=== PATIENT | male | born 1950 | race Hispanic/Latino ===

== ENCOUNTER → 2017-11-09 | Outpatient (CLI) | payer OTHER | LOC: OIH 09:20 | PROVIDERS: ATTEND Family Medicine | DX: I10 Essential (primary) hypertension (principal) | CPT/HCPCS: 71046 ==

== ENCOUNTER → 2017-12-03 | Outpatient (CLI) | payer OTHER | END | disposition home or self-care (01) | LOC: RAH 10:00 | PROVIDERS: ATTEND Family Medicine | DX: E03.9 Hypothyroidism, unspecified (principal); Z80.8 Family history of malignant neoplasm of other organs or systems | CPT/HCPCS: 76536 ==

== ENCOUNTER 2018-12-16 18:41 | Emergency (ER) | payer OTHER ==
[2018-12-16] MEDS ORDERED: TETANUS/DIPHTHERIA TOXOID [ADULT] 0.5 ML VIAL IM ONE (19:37)
[2018-12-16 19:45] LABS: BASOPHILS % (AUTO) 0.6 % (0.0-5.0); EOSINOPHILS % (AUTO) 2.1 % (0.0-8.0); HEMATOCRIT 43.2 % (42-54); LYMPHOCYTES % (AUTO) 29.5 % (21.0-51.0); MEAN CORPUSCULAR HGB CONC 33.8 g/dL (32.0-36.0); MEAN CORPUSCULAR VOLUME 94.7 fL (79-99); MONOCYTES % (AUTO) 6.1 % (3.0-13.0); NEUTROPHILS % (AUTO) 61.7 % (40.0-77.0); NUCLEATED RED BLOOD CELLS 0.1 % (0.0-0.19); PLATELET COUNT (AUTO) 203 K/uL (130-400); RED BLOOD CELL COUNT(AUTO) 4.56 MIL/uL (4.50-6.20); RED CELL DISTRIBUTION WIDTH 13.8 % (11.0-15.5); WHITE BLOOD COUNT (AUTO) 11.8 K/uL (4.8-10.8)
[2018-12-16 19:46] LABS: APPEARANCE,URINE Clear (CLEAR); BILIRUBIN,URINE Negative (NEGATIVE); COLOR,URINE Yellow (YELLOW); GLUCOSE, URINE (UA) Negative (NEGATIVE); KETONES,URINE Negative (NEGATIVE); LEUKOCYTE ESTERASE ,URINE Negative (NEGATIVE); NITRATE,URINE Negative (NEGATIVE); OCCULT BLOOD,URINE Negative (NEGATIVE); PH,URINE 5.5 (5.0-8.0); PROTEIN,URINE Negative (NEGATIVE); UROBILINOGEN,URINE 0.2 mg/dL (0.2-1.0)
[2018-12-16 19:54] LABS: AMPHET/METH SCREEN,URINE NEGATIVE (NEGATIVE); BARBITURATE SCREEN, URINE NEGATIVE (NEGATIVE); BENZODIAZEPINES SCREEN,URINE NEGATIVE (NEGATIVE); CANNABINOID SCREEN,URINE NEGATIVE (NEGATIVE); COCAINE SCREEN,URINE NEGATIVE (NEGATIVE); OPIATE SCREEN,URINE NEGATIVE (NEGATIVE); PHENCYCLIDINE SCREEN,URINE NEGATIVE (NEGATIVE)
[2018-12-16 19:57] LABS: POTASSIUM 3.9 mmol/L (3.5-5.1)
[2018-12-16 19:58] LABS: INR 0.99 (0.85-1.15); PROTHROMBIN TIME 10.4 SEC (9.6-11.6)
[2018-12-16 20:02] LABS: ALBUMIN 4.2 g/dL (3.5-5.0); BILIRUBIN,TOTAL 0.5 mg/dL (0.2-1.0); TOTAL PROTEIN, SERUM 8.2 g/dL (6.0-8.3)
== END 2018-12-16 20:43 | disposition home or self-care (01) ==
LOC: EDH 18:41
DX: S01.81XA Laceration without foreign body of other part of head, initial encounter (principal); S01.112A Laceration without foreign body of left eyelid and periocular area, initial encounter; E86.9 Volume depletion, unspecified; I10 Essential (primary) hypertension; E78.5 Hyperlipidemia, unspecified; E07.9 Disorder of thyroid, unspecified; Z72.0 Tobacco use; W18.39XA Other fall on same level, initial encounter; Y93.01 Activity, walking, marching and hiking; Y92.89 Other specified places as the place of occurrence of the external cause; Y99.8 Other external cause status
CPT/HCPCS: 12053; 36415; 70450; 80053; 80305; 81003; 82550; 83605; 84484; 85025; 85610; 85730; 90471; 90714; 93005; 96360; 99285; G0480

== ENCOUNTER → 2019-03-27 | Outpatient (CLI) | payer OTHER | END | disposition home or self-care (01) | LOC: RAH 14:49 | PROVIDERS: ATTEND Family Medicine | DX: M47.816 Spondylosis without myelopathy or radiculopathy, lumbar region (principal) | CPT/HCPCS: 72131 ==

== ENCOUNTER → 2019-12-04 | Outpatient (CLI) | payer OTHER | END | disposition home or self-care (01) | LOC: OIH 09:52 | PROVIDERS: ATTEND Family Medicine | DX: R10.11 Right upper quadrant pain (principal) | CPT/HCPCS: 71046; 71110 ==

== ENCOUNTER → 2019-12-06 | Outpatient (CLI) | payer OTHER ==
[~2019-12-06] MED LIST: AMAN100T PO; DEXA1TAB PO; DEXT1CAP3 PO; LEVO88TA4 PO; LISI40TA4 PO; METO-409 PO; ROSU10TA28 PO
--- NOTE | 2019-12-06 11:00 | NUR ---
MBSS COMPLETED. NO ASPIRATION. RECOMMEND REGULAR SOLIDS, THIN LIQUIDS. COMPENSATORY STRATEGIES RECOMMENDED: ALTERNATE BITES/SIPS, EFFORTFUL SWALLOWS, DOUBLE SWALLOWS. 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 GRINDER WATCH PARTS COORDINATED CARE AND WITH DAUGHTER, RESULTS AND RECOMMENDATIONS PROVIDED VERBALLY AND VIA WRITTEN MODALITY. GRINDER WATCH PARTS EDUCATED Pt AND FAMILY MEMBER ON RISKS AND CONSEQUENCES OF ASPIRATION. ALL QUESTIONS ANSWERED AT THIS TIME. Addendum: 12/06/[address]AN GOMEZ Amended: Links added.
== END | disposition home or self-care (01) ==
LOC: RAH 10:20
PROVIDERS: ATTEND Family Medicine
DX: G23.1 Progressive supranuclear ophthalmoplegia [Steele-Richardson-Olszewski] (principal); R13.19 Other dysphagia
CPT/HCPCS: 74230; 92611

== ENCOUNTER 2020-02-12 06:51 | Inpatient (IN) | payer OTHER ==
[~2020-02-12] VITALS: Ht 157.5 cm; Wt 78.7 kg
[2020-02-12] MEDS ORDERED: DEXTROSE 50%-WATER 50 ML DISP.SYRIN IV ONE ×2 (10:35→18:28)
[2020-02-12] MEDS ORDERED: CALCIUM GLUCONATE 1 GM/10 ML VIAL IV ONE (10:35)
[2020-02-12] MEDS ORDERED: INSULIN HUMULIN R 100 UNIT/ML 3ML ONE (10:36)
[2020-02-12] MEDS ORDERED: SODIUM CHLORIDE 0.9% 100 ML IV ONE (10:39)
[2020-02-12] MEDS ORDERED: SODIUM CHLORIDE 0.9% 1000ML 1,000 ML IV SCH (13:08)
[2020-02-12] MEDS ORDERED: DiphenhydrAMINE HCL 50 MG/ML VIAL IV PRN (13:15)
[2020-02-12] MEDS ORDERED: LACTULOSE 20 GM/30 ML UDCUP PO PRN (13:15)
[2020-02-12] MEDS ORDERED: ONDANSETRON HCL 4 MG/2 ML VIAL IV PRN (13:15)
[2020-02-12] MEDS ORDERED: DEXTROSE 5 % AND 0.9 % NACL 1,000 ML IV SCH (13:30)
[2020-02-12] MEDS ORDERED: HEPARIN SODIUM 5000UNIT/ML 1ML VIAL SQ SCH (14:00)
[2020-02-12] MEDS ORDERED: SODIUM POLYSTYRENE SULFONATE 15 GM/60 ML ML PO SCH (14:30)
[2020-02-12] MEDS ORDERED: HEPARIN SODIUM 5000UNIT/ML 1ML VIAL ONE (15:40)
[2020-02-12] MEDS ORDERED: FAMOTIDINE/PF 20 MG/2 ML VIAL IV ONE (15:41)
[2020-02-12] MEDS ORDERED: DEXTROSE 5 % AND 0.9 % NACL 1,000 ML IV ONE (15:48)
[2020-02-12] MEDS ORDERED: DEXTROSE 10%-WATER 1,000 ML IV ONE (18:39)
[2020-02-12] MEDS ORDERED: DEXTROSE 10%-WATER 1,000 ML IV SCH (18:45)
[2020-02-12] MEDS ORDERED: DEXTROSE 50%-WATER 25 GM/50 ML VIAL IV SCH (19:45)
[2020-02-12] MEDS: ZOSYN 3.375GM+NS 50ML 50 ML IV SCH (23:00)
[2020-02-12] MEDS ORDERED: ZOSYN 3.375GM+NS 50ML 50 ML IV ONE (23:09)
--- NOTE | 2020-02-13 07:53 | NUR ---
patient still in ER department, awaiting for patient to be transferred to medical floor in order to be able to initiate skilled Physical Therapy evaluation as ordered by Verona Cook,AGACNPBC Addendum: 02/13/20 at 0755 by ROXANNA MENDEZ, PT PT Amended: Links added.
[2020-02-13] MEDS: FAMOTIDINE/PF 20 MG/2 ML VIAL IV SCH (09:00)
--- NOTE | 2020-02-13 09:30 | NUR ---
INITIAL ASSESSMENT- SPOKE WITH DAUGHTER DONNIE VITAL, POA FOR PATIENT AND SPOUSE, LIVES WITH SPOUSE KASSY , BOTH REQUIRE POA FOR DECISION MAKING, PROVIDER SERVICES PENDING, PT HAS ROLLING WALKER, SHOWER CHAIR , LATLEY BED BATH BECAUSE SO MUCH WEAKER, PENIDNG SWALLOW STUDY AND POSSIBLE PEG? PER DAUGHTER PATIENT HAS DX OF PROGRESSIVE SUPRANUCLEAR PALSY, SEES DR. SCHULTE IN [place]; DISCUSSED HOME HEALTH /PT/ST AT HOME IF NEEDED, WILL DECLINED PLACEMENT
[2020-02-13] MEDS ORDERED: FAMOTIDINE/PF 20 MG/2 ML VIAL IV ONE (10:15)
[2020-02-13] MEDS ORDERED: DEXTROSE 10%-WATER 1,000 ML IV ONE (13:33)
[2020-02-13] MEDS ORDERED: ZOSYN 3.375GM+NS 50ML 50 ML IV ONE (13:51)
[2020-02-13] MEDS ORDERED: SODIUM CHLORIDE 0.9% 1000ML 1,000 ML IV ONE (13:52)
[2020-02-13] MEDS ORDERED: LACTULOSE 20 GM/30 ML UDCUP ONE (14:14)
[2020-02-14] MEDS ORDERED: ZOSYN 3.375GM+NS 50ML 50 ML IV ONE (01:31)
--- NOTE | 2020-02-14 07:30 | NUR ---
patient still in ER,awaiting for patient to be transferred to medical floor in order to be able to initiate skilled Physical Therapy Evaluation. Addendum: 02/14/20 at 0732 by ROXANNA MENDEZ, PT PT Amended: Links added.
[2020-02-14] MEDS: FAMOTIDINE/PF 20 MG/2 ML VIAL IV SCH (09:00)
[2020-02-14] MEDS ORDERED: SODIUM CHLORIDE 0.9% 1000ML 1,000 ML IV SCH (14:15)
--- NOTE | 2020-02-14 20:22 | NUR ---
transfer from ed spoke with jada ramos on [facility] for report. Nurse reports pt is stable, vs 143/74, hr 72, rr 24, temp 98.4, O2 99% on 3 L nc. nurse reported pt has a pérez in place. D5 ns running at 125/h. peniding dr. wood to see pt. will review chart and assess pt once on floor.
[2020-02-14 20:47] VITALS: PULSE 81; RESP 18
[2020-02-14 20:54] VITALS: BP 143/74; PULSE 73; RESP 20; TEMP 97.7
[2020-02-14] MEDS: ZOSYN 3.375GM+NS 50ML 50 ML IV SCH (23:00)
[2020-02-15] VITALS (8 sets, daily range): BP systolic 140–154; BP diastolic 60–77; PULSE 64–83; RESP 18–21; TEMP 97.4–97.9
[2020-02-15] MEDS ORDERED: DEXTROSE 50%-WATER 50 ML DISP.SYRIN IV ONE (00:37)
[2020-02-15] MEDS ORDERED: DEXTROSE 50%-WATER 50 ML DISP.SYRIN IV PRN (02:00)
[2020-02-15] MEDS ORDERED: GLUCAGON 1MG KIT 1 MG ML IM PRN (02:00)
--- NOTE | 2020-02-15 09:00 | NUR ---
I SPOKE TO DERRELL KOHLER VEHICLE BODY SANDER FOR BENCHMARK AND SHE GAVE ME ORDER TO TRANSFER TO MED SURG FLOOR WITH TELE; I HAVE SPOKEN TO IT SUPPORT ENGINEER ASKING FOR BED.
--- NOTE | 2020-02-15 09:05 | NUR ---
I ASKED PLASTIC SURGERY MANAGER DERRELL IF PT SHOULD BE SWABBED FOR COVID AND SHE STATED NO
[2020-02-15] MEDS: FAMOTIDINE/PF 20 MG/2 ML VIAL IV SCH (09:20)
--- NOTE | 2020-02-15 09:36 | NUR ---
IN REGARDS TO CONSULTS I CALLED DR FERMIN'S OFFICE 2X AND IT WENT TO VOICE MAIL BOTH TIMES; I LEFT MESSAGE IN REGARDS TO CONSULT; I SPOKE TO TAVON AT DR VALENCIA'S OFFICE AND INFORMED OF CONSULT; I ATTEMPTED TO CALL REPORT TO 3RD FLOOR TO TRANSFER THE PATIENT BUT NO ONE WAS AVAILABLE TO TAKE THE REPORT
--- NOTE | 2020-02-15 10:03 | NUR ---
RE: LIVER BIOPSY BY IR DR Sofy LEDESMA NOTIFIED OF PROCEDURE AND REVIEWED IMAGES. AGREES WITH RECOMMENDATIONS ON CT REPORT. PATIENT NEEDS LIVER MRI WITH CONTRAST TO CONFIRM LIVER LESION. RECOMMENDATIONS REPORTED TO Shahbaz MART RN
--- NOTE | 2020-02-15 10:15 | NUR ---
DR ROBBINS STATES PT CAN NOT HAVE MRI WITH CONTRAST DUE TO HIS KIDNEY FAILURE; HE IS GOING TO CALL DR LEDESMA AND DISCUSS CASE. I HAVE CALLED RL AND UPDATED HER ON THIS.
--- NOTE | 2020-02-15 10:30 | NUR ---
REPORT RECEIVED FROM SHIREEN SU. SHIREEN LOREDO TRANSFERRED PATIENT TO ROOM 301. PENDING CALL BACK FROM DR. GA. PATIENT SLUGGISH TO SPEAK OR OPEN HIS EYES.
[2020-02-15] MEDS: ZOSYN 3.375GM+NS 50ML 50 ML IV SCH ×2 (13:03→23:45)
--- NOTE | 2020-02-15 13:35 | NUR ---
RE: LIVER BIOPSY BY IR DR Sofy LEDESMA MADE AWARE OF CONCERNS OF IV CONTRAST STUDIED FOR PATIENT. PATIENT NOT A CANDIDATE FOR CONTRAST IMAGING DUE TO LOW GFR. U/S OF ABDOMEN ORDERED FOR LIVER MASS EVALUATION. UNABLE TO SEE LIVER MASS WITH U/S. SUSPECTED LESION ON DOME OF LIVER AND SURROUNDED BY PLEURA. THERE IS NO PERCUTANEOUS ACCESS TO PERFORM UNDER CT. CANCEL LIVER BIOPSY WITH IR Addendum: 02/15/20 at 1349 by BRISSA WATERS RN RN PROCEDURE OUTCOME REPORTED TO Kasey DIAZ LVN
[2020-02-15] MEDS: DEXTROSE 5 % AND 0.9 % NACL 1,000 ML IV SCH (20:58)
[2020-02-16] VITALS (7 sets, daily range): BP systolic 104–148; BP diastolic 51–82; PULSE 62–92; RESP 19–32; TEMP 97.7–98.9
[2020-02-16] MEDS: DEXTROSE 5 % AND 0.9 % NACL 1,000 ML IV SCH ×2 (04:40→18:00)
[2020-02-16] MEDS: FAMOTIDINE/PF 20 MG/2 ML VIAL IV SCH (08:01)
[2020-02-16] MEDS ORDERED: LORAZEPAM 2 MG/ML 1 ML VIAL IVP PRN (08:45)
[2020-02-16] MEDS ORDERED: MORPHINE SULFATE 2 MG/ML 1ML SYG IM PRN (08:45)
[2020-02-16] MEDS ORDERED: FOLIC ACID/VITAMIN B COMP W-C 1 CAP TAB PO SCH (09:00)
[2020-02-16] MEDS ORDERED: THIAMINE HCL 100 MG TABLET PO SCH (09:00)
--- NOTE | 2020-02-16 11:15 | NUR ---
DNR DNI Sw spoke to nurse Benitez who states that Dr Rodriguez spoke to family about code status and family is in agreement. Family currently at bedside. Emmanuel to have family sign DNR/DNI form for chart
[2020-02-16] MEDS: ZOSYN 3.375GM+NS 50ML 50 ML IV SCH (11:32)
--- NOTE | 2020-02-16 12:25 | NUR ---
DCP: HOME WITH [facility] ON [facility] Esme met with pt's and daughter/ROBBIN Butler [place] [phone]. Family state they want to take pt home today with [facility] since pt's niece works as nurse there. Daughter signed consents and OOHDNR. ESME contacted Yulisa at [facility] [phone]. PEr Yulisa they are running on skeleton crew and may not be able to admit pt today. Yulisa to speak to admin and see if they can plan for tomorrow dc and recontact us. Family aware of this and are understanding. Pt is comfort measures at this time. Nurse Benitez aware as well.
--- NOTE | 2020-02-16 13:37 | NUR ---
CM Note: EMS arranged EMS arranged and faxed for today in case pt able to dc home w/[facility], primary nurse to call [facility] once pt ready to DC. Will to refax w/current date for tomorrow. CM to cont to follow up.
--- NOTE | 2020-02-16 16:39 | NUR ---
1500 IM Letter signed by daughter, I faxed IM Letter to [phone] and placed in chart under consent tab.
--- NOTE | 2020-02-16 17:00 | NUR ---
Received report from Emmanuel Sheffield LVN. Per report, verbal order to proceed with comfort measures by Dr. Sorto, IV Ativan 0.5 mg Q8h PRN for agitation, Morphine 1 mg IV Q3h PRN for respiratory distress. Pending authorization with [facility]. Patient's family requested DNR/DNI, order signed. Patient currently on bipap, lying left lateral. Crackles to lungs on auscultation, regular, deep respiratory rhythm, no distress noted. Spouse and daughter at bedside and instructed to notify staff of any signs or changes in condition noted. Verbalized understanding. Bed low, locked. Call infante within reach.
[2020-02-16] MEDS ORDERED: MORPHINE SULFATE 2 MG/ML 1ML SYG IVP PRN (17:45)
--- NOTE | 2020-02-16 18:29 | NUR ---
Notified Rose Claire NP of recommendation and verbal orders from Dr. Sorto for comfort measures. Family signed DNR/DNI but requested BIPAP therapy continued. Received telephone order from Rose Claire to discontinue all interventions except comfort measures, may continue with Vitals Q shift. Hummel catheter to remain in place for end of life comfort. DNR/DNI and out of hospital DNR/DNI in chart.
--- NOTE | 2020-02-16 20:54 | NUR ---
SUMMONED BY STAFF TO PATIENT'S ROOM. PATIENT SUPINE IN BED. FAMILY MEMBER AT BEDSIDE. NO BREATH SOUNDS, HEART TONES OR BLOOD PRESSURE AUDIBLE ON AUSCULTATION. PUPILS FIXED AND DILATED. TANK STORAGE SUPERVISOR REVEALS ASYSTOLE.
--- NOTE | 2020-02-16 21:00 | NUR ---
CALLED IN TO ROOM BY TELEMONITOR FOR AN ASYSTOLE HEART RHYTHM. PATIENT FOUND TO BE UNRESPONSIVE IN BED. NO RESPIRATIONS, NO PULSE, NO HEART OR BREATH SOUNDS AUSCULTATED. NO CODE CALLED PER ADVANCED DIRECTIVE AND SIGNED DNR ORDER IN CHART. PRONOUNCED BY YANG SOOD RNDIRECTOR OF CAREER RESOURCES AT 2053. ERIN PINON CALLED AND AWARE OF PATIENT STATUS. DAUGHTER, QUIN WONG AT BEDSIDE WITH SPOUSE. FAMILY IN ROOM LEFT TO GRIEVE AT THIS TIME. Addendum: 02/16/20 at 2311 by BENI PAULA RN RN Amended: Links added.
--- NOTE | 2020-02-16 23:11 | NUR ---
IV ACCESS IN RIGHT FOREARM AND LEFT AC DISCONTINUED. POSTMORTEM CARE PREFORMED. BODY SENT TO [facility] AT THIS TIME. Addendum: 02/16/20 at 2313 by BENI PAULA RN RN Amended: Links added.
== END 2020-02-16 20:54 | disposition expired | DRG 682 ==
LOC: EDH 06:51 → EDHIP 15:16 → 4DH 02-14 21:16 → 3AH 02-15 10:51 → 3BH 02-16 16:43
PROVIDERS: ADMIT Internal Medicine; ATTEND Internal Medicine
PROC: 5A09357 Assistance with Respiratory Ventilation, Less than 24 Consecutive Hours, Continuous Positive Airway Pressure (ICD-10-PCS; principal; 2020-02-16)
DX: N17.9 Acute kidney failure, unspecified (principal); I81 Portal vein thrombosis; R18.8 Other ascites; K74.60 Unspecified cirrhosis of liver; E16.2 Hypoglycemia, unspecified; E87.5 Hyperkalemia; E86.0 Dehydration; R62.7 Adult failure to thrive; K72.90 Hepatic failure, unspecified without coma; I12.9 Hypertensive chronic kidney disease with stage 1 through stage 4 chronic kidney disease, or unspecified chronic kidney disease; N18.9 Chronic kidney disease, unspecified; D72.829 Elevated white blood cell count, unspecified; Z68.31 Body mass index [BMI] 31.0-31.9, adult; D64.9 Anemia, unspecified; E78.5 Hyperlipidemia, unspecified; Z87.891 Personal history of nicotine dependence; R16.0 Hepatomegaly, not elsewhere classified; Z66 Do not resuscitate